=== PATIENT | male | born 1985 | race Caucasian/White ===

== ENCOUNTER 2017-01-24 14:25 | Emergency (ER) | payer MEDICAID ==
--- NOTE | 2017-02-03 10:05 | ER ---
ADMIT: 01/24/2017 RM/LOC: ER [facility] MR#: [id number] [address] [address] FLORINDA LILLY [address] [place] [address] Emergency Room Report SEX: M AGE: 31 : 1985 DATE: 01/24/2017 ADDENDUM: CHIEF COMPLAINT: Constipation. HISTORY OF PRESENT ILLNESS: This is a 31-year-old male who has a chronic constipation. His mom gives him MiraLAX every day. She said he just recently was on Carafate. She thinks this made him a little bit more constipated. She gave 3 scoops of MiraLAX last night. She gave 2 this morning. He did have a little bit of liquid stool, but she said it seemed like more of the liquid that goes around a fecal impaction. She came here because he feels like he is not getting any relief. COURSE IN THE EMERGENCY ROOM: I did give him a soapsuds enema. After he has a bowel movement, he will be released home. CLINICAL IMPRESSION: Constipation. SHIVANI Sandoval / Ronaldo Valiente MD / kyle JOB #: [id number] CC: Ronaldo Valiente MD, Attending Physician
== END 2017-01-24 16:46 | disposition home or self-care (01) ==
LOC: ER 14:25
DX: K59.00 Constipation, unspecified (principal); E11.9 Type 2 diabetes mellitus without complications; K21.9 Gastro-esophageal reflux disease without esophagitis; Z98.890 Other specified postprocedural states; Z90.89 Acquired absence of other organs; Z88.5 Allergy status to narcotic agent; Z88.1 Allergy status to other antibiotic agents; Z79.899 Other long term (current) drug therapy

== ENCOUNTER 2017-04-01 12:22 | Emergency (ER) | payer MEDICAID ==
--- NOTE | 2017-04-09 09:00 | ER ---
ADMIT: 04/01/2017 RM/LOC: ER [facility] MR#: [id number] [id number] [place], [place] [address] FLORINDA LILLY Soraya [address] [place] [address] Emergency Room Report SEX: M AGE: 31 : 1985 DATE: 04/01/2017 BRIEF ADDENDUM: See my T-sheet for complete review of systems, past medical history, and physical exam. CHIEF COMPLAINT: Abdominal pain. HISTORY OF PRESENT ILLNESS: This is a pleasant 31-year-old, white male, who presents with his mother wanting to be checked out for some intermittent abdominal pain. Mother states he has a significant history of constipation and bowel issues. For the past day, he has been having some episodes of periumbilical abdominal pain and malaise. He states when he eats he just wants to sleep. He complains of some acid reflux, burning type pain epigastrically, some vomiting yesterday, no episodes today, loss of appetite. He has been seen by Gastroenterology and multiple providers for his bowels, currently on MiraLAX and Colace for bowel regimen. States he does not exercise much, probably does not drink as much as he should. Does have a history of diabetes, previously treated with metformin and some other oral agents; however, these were discontinued by physician in [place] after stated he no longer needed these medications. COURSE IN THE EMERGENCY ROOM: The patient was seen and examined. PHYSICAL EXAMINATION: VITAL SIGNS: He is afebrile and nontoxic. GENERAL: He is in no acute distress. He is alert. He does have some intellectual disability. RESPIRATORY: No wheezes, rales, or rhonchi. HEENT: Head is atraumatic and normocephalic. HEART: Regular rate and rhythm. ABDOMEN: Diffusely tender. No distention guarding or rebound. No McBurney point tenderness. Bowel sounds are mildly decreased. SKIN: Warm and dry. EXTREMITIES: Nontender. No pedal edema. He is oriented. Motor and sensation are normal. EMERGNCY ROOM COURSE Did get a KUB on him showing stool impaction with moderate stool burden. Also, gave him GI cocktail, which he states improved his epigastric pain. I did give him Fleet Enema. States he passed some small bowel movements. I did discuss plan to discharge home to use magnesium citrate and Dulcolax suppositories to finish the bowel evacuation. Mother was okay with this plan. ADMIT: 04/01/2017 RM/LOC: ER [facility] MR#: [id number] [address] [address] MAXX FLORINDA A [address] [place] [address] Emergency Room Report SEX: M AGE: 31 : 1985 IMPRESSION: 1. Constipation. 2. Fecal impaction. DISPOSITION: The patient to return home. Use one bottle of magnesium citrate and Dulcolax suppository to complete bowel evacuation. Follow up with Dr. Garnica next week to address his bowel regimen. Increase fluids to at least 1.5 L a day. Increase exercise to at least 30 minutes a day. Encourage whole fruits and vegetables. Increase fiber. Questions sought and answered to the best of my ability and to the patient's satisfaction. Discharged in stable condition. SHIVANI Hercules / Kael Terry MD / kyle JOB #: [id number] CC: Kael Terry MD, Attending Physician UNKNOWN, Family Physician
== END 2017-04-01 14:36 | disposition home or self-care (01) ==
LOC: ER 12:22
DX: K59.00 Constipation, unspecified (principal); K56.41 Fecal impaction; E11.9 Type 2 diabetes mellitus without complications; K21.9 Gastro-esophageal reflux disease without esophagitis; Z88.5 Allergy status to narcotic agent; Z88.8 Allergy status to other drugs, medicaments and biological substances

== ENCOUNTER 2017-04-05 10:51 | Emergency (ER) | payer MEDICAID ==
--- NOTE | 2017-04-17 08:25 | ER ---
ADMIT: 04/05/2017 RM/LOC: ER [facility] MR#: [id number] [address] [facility] [address] [place], [place] [address] FLORINDA LILLY [address] [place] [address] Emergency Room Report SEX: M AGE: 31 : 1985 DATE: 04/05/2017 ADDENDUM: This patient comes to the ER today because of abdominal pain. He was seen in the ER 2 days ago with constipation. They gave him an enema. He has been taking MiraLax, Colace, and mag citrate. Mother states he is only having watery stool and feels like his stomach is full. On physical exam, he is slightly distended and diffuse tenderness that comes and goes. No rebound tenderness or guarding. KUB showed quite a bit of air concern for an ileus. CAT scan was done that was normal. While the patient was here, he passed a lot of gas and he felt a lot better. I did do a rectal exam, which was negative for any impaction and on the x-ray did not really show a lot of stool. I think that they are over doing it with the laxatives trying to get him to go and he is not as full as they think that he is. We will have him only given the MiraLax that he takes regularly and then to follow up with his primary as needed. Please see my T-sheet. SHIVANI Mcmillan / David Waters MD / kyle JOB #: [id number] CC: David Waters MD, Attending Physician Neville Garnica MD, Family Physician
== END 2017-04-05 14:45 | disposition home or self-care (01) ==
LOC: ER 10:51
DX: R10.84 Generalized abdominal pain (principal); F41.9 Anxiety disorder, unspecified; F31.9 Bipolar disorder, unspecified; Z88.8 Allergy status to other drugs, medicaments and biological substances; Z88.0 Allergy status to penicillin; Z79.899 Other long term (current) drug therapy